=== PATIENT | male | born 1935 | race Caucasian/White ===

== ENCOUNTER 2018-02-04 00:31 | Emergency (ER) | payer MEDICARE, OTHER ==
--- NOTE | 2018-02-04 01:04 | Emergency Department Record ---
History of Present Illness - General Chief complaint: Lower Extremity Pain Stated complaint: LEFT LEG PAIN Time Seen by Provider: 02/04/18 00:49 Source: Patient Mode of Arrival: Ambulatory Limitations: No limitations - History of Present Illness Initial comments: pt had a vigorous ride in his golf cart with a lot of bouncing 2 days ago. since then he has had increased pain in the buttock w radiation down his l leg. he denies numbness or bowel or bladder issues. he has had back problems in the past. he has an appt with his dr this am but he could not sleep MD Complaint: Extremity pain, Other Onset/Timin -: Days(s) Location: Left, Other Severity scale (1-10): 10 Quality: Aching Consistency: Getting worse Improves with: Nothing Worsens with: Nothing Associated Symptoms: Denies other symptoms - Related Data Home Medications Medication Instructions Recorded Confirmed Last Taken Aspirin 81 mg PO DAILY 02/04/18 02/04/18 Unknown Bicalutamide 50 mg PO DAILY 02/04/18 02/04/18 Unknown Carvedilol 6.25 mg PO BID 02/04/18 02/04/18 Unknown Ramipril 5 mg PO DAILY 02/04/18 02/04/18 Unknown Rosuvastatin Calcium [Crestor] 5 mg PO DAILY 02/04/18 02/04/18 Unknown Allergies Allergy/AdvReac Type Severity Reaction Status Date / Time Sulfa (Sulfonamide Allergy rash Unverified 08/09/17 12:25 Antibiotics) Travel Screening - Travel/Exposure Within Last 30 Days Have you traveled within the last 30 days?: No Review of Systems Reviewed: No additional complaints except as noted below Constitutional: Reports: As per HPI. Denies: Chills, Fever, Malaise, Night sweats, Weakness, Weight change Eyes: Reports: As per HPI. Denies: Eye discharge, Eye pain, Photophobia, Vision change ENT: Reports: As per HPI. Denies: Congestion, Dental pain, Ear pain, Epistaxis , Hearing loss, Throat pain Respiratory: Reports: As per HPI. Denies: Cough, Dyspnea, Hemoptysis, Stridor, Wheezes Cardiovascular: Reports: As per HPI. Denies: Arrhythmia, Chest pain, Dyspnea on exertion, Edema, Murmurs, Orthopnea, Palpitations, Paroxysmal nocturnal dyspnea, Rheumatic Fever, Syncope Endocrine: Reports: As per HPI. Denies: Fatigue, Heat or cold intolerance, Polydipsia, Polyuria Gastrointestinal: Reports: As per HPI. Denies: Abdominal pain, Constipation, Diarrhea, Hematemesis, Hematochezia, Melena, Nausea, Vomiting Genitourinary: Reports: As per HPI. Denies: Dysuria, Frequency, Hematuria, Incontinence, Retention, Testicular pain, Testicular mass, Urgency Musculoskeletal: Reports: As per HPI. Denies: Arthralgia, Back pain, Gout, Joint swelling, Myalgia, Neck pain Skin: Reports: As per HPI. Denies: Bruising, Change in color, Change in hair/ nails, Lesions, Pruritus, Rash Neurological: Reports: As per HPI. Denies: Abnormal gait, Confusion, Headache, Numbness, Paresthesias, Seizure, Tingling, Tremors, Vertigo, Weakness Psychiatric: Reports: As per HPI. Denies: Anxiety, Auditory hallucinations, Depression, Homicidal thoughts, Suicidal thoughts, Visual hallucinations Hematological/Lymphatic: Reports: As per HPI. Denies: Anemia, Blood Clots, Easy bleeding, Easy bruising, Swollen glands Past Medical History - SOCIAL HISTORY Smoking Status: Never smoker Alcohol Use: None Drug Use: None - RESPIRATORY Hx Respiratory Disorders: Yes Hx of CPAP: Yes - CARDIOVASCULAR Hx Cardio Disorders: Yes Hx Hypertension: Yes - NEURO Hx Neuro Disorders: No - GI Hx GI Disorders: No - Hx Genitourinary Disorders: No - ENDOCRINE Hx Endocrine Disorders: No - MUSCULOSKELETAL Hx Musculoskeletal Disorders: No - PSYCH Hx Psych Problems: No - HEMATOLOGY/ONCOLOGY Hx Hematology/Oncology Disorders: No Family Medical History Any Significant Family History?: No Physical Exam - General General Appearance: Alert, Oriented x3, Cooperative, Mild distress - Head Head exam: Normal inspection - Eye Eye exam: Normal appearance, PERRL, EOMI Pupils: Normal accommodation - ENT ENT exam: Normal exam, Mucous membranes moist, Normal external ear exam, Normal orophraynx Ear exam: Normal external inspection. negative: External canal tenderness Nasal Exam: Normal inspection. negative: Discharge, Sinus tenderness Mouth exam: Normal external inspection, Tongue normal Teeth exam: Normal inspection. negative: Dental caries Throat exam: Normal inspection. negative: Tonsillar erythema, Tonsillar exudate - Neck Neck exam: Normal inspection, Full ROM. negative: Tenderness - Respiratory Respiratory exam: Normal lung sounds bilaterally. negative: Respiratory distress - Cardiovascular Cardiovascular Exam: Regular rate, Normal rhythm, Normal heart sounds - GI/Abdominal GI/Abdominal exam: Soft, Normal bowel sounds. negative: Tenderness - Rectal Rectal exam: Deferred - exam: Deferred - Extremities Extremities exam: Normal inspection, Full ROM, Normal capillary refill. negative: Tenderness - Back Back exam: Reports: Muscle spasm, Tenderness. Denies: Full ROM, Rash noted - Neurological Neurological exam: Alert, CN II-XII intact, Normal gait, Oriented X3 - Psychiatric Psychiatric exam: Normal affect, Normal mood - Skin Skin exam: Dry, Intact, Normal color, Warm Course Vital Signs 02/04/18 00:36 Temperature 98.5 F Pulse Rate 61 Respiratory 20 Rate Blood Pressure 183/93 Pulse Ox 96 Disposition Disposition: Discharge Clinical Impression: Sciatica Qualifiers: Laterality: left Qualified Code(s): M54.32 - Sciatica, left side Disposition: Home, Self-Care Condition: (1) Good Instructions: Sciatica (ED), Lumbar Radiculopathy (ED) Additional Instructions: follow up with family doctor today. return sooner if worse. moist heat, Forms: Patient Portal Access Quality - Quality Measures Quality Measures: N/A - Blood Pressure Screening Does Patient Have Any of the Following: No Blood Pressure Classification: Hypertensive Reading Systolic Measurement: 183 Diastolic Measurement: 93 Screening for High Blood Pressure: < First Hypertensive BP, F/U Documented > [ G8950] First Hypertensive Follow-up Interventions: Follow-up with rescreen GT 1 day and LT 4 weeks.
[2018-02-04] MEDS ORDERED: HYDROCODONE/APAP 5/325MG TABLET PO ONE (02:22)
--- NOTE | 2018-02-05 13:42 | RADIOLOGY REPORT ---
DATE: 02/05/2018. EXAM: LUMBAR SPINE. HISTORY: Back pain. TECHNIQUE: Frontal and lateral views of the lumbar spine. COMPARISON: None. FINDINGS: Osteopenia. There are five [id number] lumbar-type vertebral bodies. Vertebral body height is preserved. Minor anterolisthesis of L5 with respect to S1 with pars defect suggested at this level. Endplate degenerative change and facet arthropathy throughout the lumbar spine, greatest at the L4-5 and L5-S1 levels. 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 SUPERIMPOSED DIFFUSE DEGENERATIVE CHANGE. OSTEOPENIA. JOB NUMBER: [id number] MTDD
--- NOTE | 2018-02-05 13:45 | RADIOLOGY REPORT ---
DATE: 02/04/2018. EXAM: AP VIEW OF THE PELVIS. HISTORY: Pain. TECHNIQUE: AP view of the pelvis. COMPARISON: None. FINDINGS: Osteopenia. Negative for acute fracture or dislocation. Mild degenerative change of the hips bilaterally. Soft tissues are unremarkable. IMPRESSION: OSTEOPENIA WITH MILD DEGENERATIVE CHANGE. JOB NUMBER: [id number] MTDD
== END 2018-02-04 02:36 | disposition home or self-care (01) ==
LOC: ER 00:31
DX: M54.32 Sciatica, left side (principal)
CPT/HCPCS: 72100; 72170; 99283

== ENCOUNTER 2019-07-29 19:11 | Emergency (ER) | payer MEDICARE, OTHER ==
--- NOTE | 2019-07-29 19:26 | Emergency Department Record ---
History of Present Illness - General Chief complaint: Male Urogenital Problem Stated complaint: RED SWOLLEN PENIS Time Seen by Provider: 07/29/19 19:21 Source: Patient Mode of Arrival: Ambulatory Limitations: No limitations - History of Present Illness Initial comments: 84 yo male presents to ED for evaluation of irritation and redness to the glans of the penis that he noticed this morning. Patient is concerned about a possible bladder infection, denies difficulty urinating or retracting the foreskin on examination. Patient denies fevers, chills, flank pain, nausea, or vomiting symptoms. MD Complaint: Other Onset/Timin -: Days(s) Radiation: None Consistency: Constant Worsens with: None Reports: Denies other symptoms - Related Data Sexually active: No Home Medications Medication Instructions Recorded Confirmed Last Taken Meloxicam 15 mg PO ASDIR PRN 07/29/19 07/29/19 Unknown Previous Rx's Medication Instructions Recorded Clotrimazole/Betamethasone Dip 45 gm TP BID #1 cream..g. 07/29/19 [Clotrimazole-Betamethasone Crm] Allergies Allergy/AdvReac Type Severity Reaction Status Date / Time Sulfa (Sulfonamide Allergy rash Unverified 08/09/17 12:25 Antibiotics) Review of Systems Constitutional: Denies: Chills, Fever, Malaise, Night sweats Eyes: Denies: Eye discharge, Eye pain ENT: Denies: Congestion, Ear pain, Epistaxis Respiratory: Denies: Cough, Dyspnea Cardiovascular: Denies: Chest pain, Dyspnea on exertion Endocrine: Denies: Fatigue, Heat or cold intolerance Gastrointestinal: Denies: Abdominal pain, Nausea, Vomiting Genitourinary: Reports: Dysuria, Other (Irritation to the glans penis). Denies: Incontinence, Retention Musculoskeletal: Denies: Arthralgia, Back pain Skin: Denies: Bruising, Change in color Neurological: Denies: Abnormal gait, Confusion, Headache, Seizure Psychiatric: Denies: Anxiety Hematological/Lymphatic: Denies: Anemia, Blood Clots Past Medical History - SOCIAL HISTORY Smoking Status: Never smoker Drug Use: None - RESPIRATORY Hx Respiratory Disorders: Yes Hx of CPAP: Yes - CARDIOVASCULAR Hx Cardio Disorders: Yes Hx Hypertension: Yes - NEURO Hx Neuro Disorders: No - GI Hx GI Disorders: No - Hx Genitourinary Disorders: No - ENDOCRINE Hx Endocrine Disorders: No - MUSCULOSKELETAL Hx Musculoskeletal Disorders: No - PSYCH Hx Psych Problems: No - HEMATOLOGY/ONCOLOGY Hx Hematology/Oncology Disorders: No Physical Exam - General General Appearance: Alert, Oriented x3, Cooperative, No acute distress Limitations: No limitations - Head Head exam: Atraumatic, Normocephalic, Normal inspection Head exam detail: negative: Abrasion, Contusion, Craig's sign, General tenderness, Hematoma, Laceration - Eye Eye exam: Normal appearance. negative: Conjunctival injection, Periorbital swelling, Periorbital tenderness, Scleral icterus - ENT Ear exam: negative: Auricular hematoma, Auricular trauma Nasal Exam: negative: Active bleeding, Discharge, Dried blood, Foreign body Mouth exam: negative: Drooling, Laceration, Muffled voice, Tongue elevation - Neck Neck exam: Normal inspection. negative: Meningismus, Tenderness - Respiratory Respiratory exam: Normal lung sounds bilaterally. negative: Rales, Respiratory distress, Rhonchi, Stridor - Cardiovascular Cardiovascular Exam: Regular rate, Normal rhythm, Normal heart sounds - GI/Abdominal GI/Abdominal exam: Soft. negative: Rebound, Rigid, Tenderness - Rectal Rectal exam: Deferred - exam: Other (Mild erythema, small amount whitish discharge present to the glans with retraction of the foreskin c/we yeat dermatitis.). negative: Circumcision, Testicular tenderness, Urethral discharge - Extremities Extremities exam: Normal inspection. negative: Pedal edema, Tenderness - Back Back exam: Denies: CVA tenderness (R), CVA tenderness (L) - Neurological Neurological exam: Alert, Normal gait, Oriented X3 - Psychiatric Psychiatric exam: Normal affect, Normal mood - Skin Skin exam: Normal color. negative: Abrasion Type of lesion: negative: abrasion Course - Reevaluation(s) Reevaluation #1: 07/29/19 20:00 Urinalysis was reviewed and appears negative for infection. Examination appears c/w yeast dermatitis of the glans penis. Patient appears stable for discharge at this time. Disposition Disposition: Discharge Clinical Impression: Yeast dermatitis of penis Disposition: Home, Self-Care Condition: (2) Stable Instructions: Skin Yeast Infection (ED) Additional Instructions: Return to ED if your symptoms worsen or if you have any concerns. Clotrimazole cream as directed. Follow-up with your family doctor in 3-5 days as directed. Prescriptions: Clotrimazole/Betamethasone Dip [Clotrimazole-Betamethasone Crm] 45 gm TP BID #1 cream..g. Forms: Patient Portal Access Time of Disposition: 19:26 Quality - Quality Measures Quality Measures: N/A - Blood Pressure Screening Does Patient Have Any of the Following: Active Dx of HTN Blood Pressure Classification: Hypertensive Reading Systolic Measurement: 189 Diastolic Measurement: 102 Screening for High Blood Pressure: Patient Exclusion, Hx of HTN [G9744]
[2019-07-29 19:50] LABS: URINE APPEARANCE CLEAR; URINE BILIRUBIN NEGATIVE (NEGATIVE); URINE BLOOD SMALL (NEGATIVE); URINE COLOR YELLOW; URINE KETONE NEGATIVE (NEGATIVE); URINE LEUKOCYTE ESTERASE SMALL (NEGATIVE); URINE NITRITE NEGATIVE (NEGATIVE); URINE PROTEIN NEGATIVE (NEGATIVE); URINE UROBILINOGEN 0.2 E.U./dL (0.20 - 1.00)
[2019-07-29 19:57] LABS: URINE BACTERIA FEW; URINE EPITHELIAL CELLS 0 - 2 (FEW)
== END 2019-07-29 20:20 | disposition home or self-care (01) ==
LOC: ER 19:11
DX: B37.49 Other urogenital candidiasis (principal); I10 Essential (primary) hypertension
CPT/HCPCS: 81001; 99283

== ENCOUNTER 2019-10-13 03:18 | Emergency (ER) | payer MEDICARE, OTHER ==
--- NOTE | 2019-10-13 03:37 | Emergency Department Record ---
History of Present Illness - General Chief complaint: Flank Pain Stated complaint: LEFT SIDE PAIN Time Seen by Provider: 10/13/19 03:35 Source: Patient Mode of Arrival: Ambulatory Limitations: No limitations - History of Present Illness Initial comments: The patient is here due to L flank pain for the last hour or so. He was lying in bed sleeping when the pain started. It was a sharp stabbing pain only in the L flank without radiation and is not worse with movement or bending. There is no AP, nausea, vomiting, fever or diarrhea. The patient did take an Alleve which did relieve the pain significantly. The pain is only mild at this time. The patient denies any recent illnesses or injuries and has no hx of similar issues. MD Complaint: Other Onset/Timin -: Hour(s) Location: Left flank Radiation: None Severity scale (1-10): 8 Quality: Dull Consistency: Constant Improves with: None Worsens with: None Reports: Denies other symptoms - Related Data Sexually active: No Previous Rx's Medication Instructions Recorded Hydrocodone/Acetaminophen [[place] 1 each PO QID #10 tablet 10/13/19 5-325 Tablet] Tamsulosin HCl [Flomax] 0.4 mg PO DAILY #7 cap.er.24h 10/13/19 Allergies Allergy/AdvReac Type Severity Reaction Status Date / Time Sulfa (Sulfonamide Allergy PT UNSURE Verified 10/13/19 03:45 Antibiotics) OF REACTION Travel/Exposure Screening - Travel/Exposure Within Last 30 Days Have you traveled within the last 30 days?: No - Travel/Exposure Within Last Year Have you traveled outside the [place] in the last year?: No - Additonal Travel/Exposure Details Have you been exposed to anyone with a communicable illness?: No - Travel Symptoms Symptom Screening: None Review of Systems Constitutional: Denies: Chills, Fever Eyes: Denies: Eye discharge ENT: Denies: Congestion Respiratory: Denies: Cough Cardiovascular: Denies: Chest pain Endocrine: Denies: Fatigue Gastrointestinal: Denies: Abdominal pain, Nausea Genitourinary: Denies: Dysuria Musculoskeletal: Denies: Arthralgia Past Medical History - SOCIAL HISTORY Smoking Status: Never smoker Alcohol Use: None Drug Use: None - RESPIRATORY Hx Respiratory Disorders: Yes Hx of CPAP: Yes - CARDIOVASCULAR Hx Cardio Disorders: Yes Hx Hypertension: Yes - NEURO Hx Neuro Disorders: No - GI Hx GI Disorders: No - Hx Genitourinary Disorders: Yes Hx Prostate Problems: Yes - ENDOCRINE Hx Endocrine Disorders: No - MUSCULOSKELETAL Hx Musculoskeletal Disorders: No - PSYCH Hx Psych Problems: No - HEMATOLOGY/ONCOLOGY Hx Hematology/Oncology Disorders: No Hx Cancer: Yes (prostate- sx) Family Medical History Any Significant Family History?: No Physical Exam - General General Appearance: Alert, Oriented x3, Cooperative, No acute distress (The patient is lying on the bed in no distress or any obvious discomfort.) - Head Head exam: Atraumatic, Normocephalic - Eye Eye exam: Normal appearance, PERRL - Neck Neck exam: Normal inspection, Full ROM. negative: Tenderness - Respiratory Respiratory exam: Normal lung sounds bilaterally. negative: Respiratory distress - Cardiovascular Cardiovascular Exam: Regular rate, Normal rhythm, Normal heart sounds - GI/Abdominal GI/Abdominal exam: Soft, Normal bowel sounds. negative: Bruit, Guarding, Hernia, Organomegaly, Pulsatile mass, Rebound, Rigid, Tenderness - Extremities Extremities exam: Normal inspection, Full ROM, Normal capillary refill. negative: Tenderness - Back Back exam: Reports: Normal inspection. Denies: CVA tenderness (R), CVA tenderness (L), Muscle spasm, Paraspinal tenderness, Vertebral tenderness Image of Body Front/Back: 1 - Area of the pateint's discomfort. - Neurological Neurological exam: Alert, Normal gait. negative: Abnormal gait, Motor sensory deficit - Skin Skin exam: negative: Rash Course Vital Signs 10/13/19 03:24 Temperature 97.8 F Pulse Rate [ 52 L Left] Respiratory 20 Rate Blood Pressure 194/84 [Left] Pulse Ox 95 - Reevaluation(s) Reevaluation #1: The patient is doing a lot better at this time. His pain is much improved and is basically gone at this time. I did inform the patient about the blood in the urine. 10/13/19 04:32 Reevaluation #2: The patient is feeling much better at this time and is pain free. He has had no vomiting or fever and he does feel comfortable going home. I did discuss the CT report with the patient and at length. I did explain that the 3 mm L ureter stone should pass but it is up quite high in the ureter and will likely be painful. He is to not take any NSAIDS due to the mild renal insuffiency and is only to take Tylenol or [place] as directed. The patient is to call Dr. Hernandez today for an appointment [place]. He also is to see his PCP due to the other findings on the CT with the stomach, gallbladder and iliac arteries. The patient also was instructed to return to the ER for any worsening pain, fever, or vomiting. 10/13/19 04:52 Medical Decision Making - Data Complexity MDM Data: Labs Ordered and/or Reviewed, X-Ray Ordered and/or Reviewed (CT: 3 mm calculus L proximal ureter with mild hydro. Multiple other chronic findings.) - Lab Data Result diagrams: 10/13/19 03:40 10/13/19 03:40 Disposition Disposition: Discharge Clinical Impression: Ureteral stone with hydronephrosis Disposition: Home, Self-Care Condition: (2) Stable Instructions: Ureteral Stones (ED) Additional Instructions: Please drink plenty of fluids and only take Tylenol OR [place] for pain. Use the FLomax as directed until you pass the stone. Please call Dr. Mccallum for an appointment today. Also see your family doctor with the CT report in hand and do discuss further evaluation for the multiple incidental findings. Return to the ER for any worsening pain, fever, or vomiting. Prescriptions: Tamsulosin HCl [Flomax] 0.4 mg PO DAILY #7 cap.er.24h Hydrocodone/Acetaminophen [[place] 5-325 Tablet] 1 each PO QID #10 tablet Forms: Patient Portal Access Time of Disposition: 05:00 Quality - Quality Measures Quality Measures: N/A - Blood Pressure Screening View Details: Yes Does Patient Have Any of the Following: Active Dx of HTN Blood Pressure Classification: Hypertensive Reading Systolic Measurement: 167 Diastolic Measurement: 78 Screening for High Blood Pressure: Patient Exclusion, Hx of HTN [G9744]
[2019-10-13] MEDS ORDERED: ACETAMINOPHEN 1,000 MG/100 ML BTL IVPB ONE (03:42)
[2019-10-13 04:03] LABS: URINE BILIRUBIN NEGATIVE (NEGATIVE); URINE BLOOD LARGE (NEGATIVE); URINE KETONE TRACE (NEGATIVE); URINE LEUKOCYTE ESTERASE NEGATIVE (NEGATIVE); URINE NITRITE NEGATIVE (NEGATIVE); URINE PROTEIN NEGATIVE (NEGATIVE); URINE UROBILINOGEN 0.2 E.U./dL (0.20 - 1.00)
[2019-10-13 04:05] LABS: HEMATOCRIT 43.4 % (42.0-52.0); HEMOGLOBIN 14.2 gm/dl (14.0-18.0); MEAN CELL VOLUME 92.7 fl (81-97); MEAN CORPUSCULAR HEMOGLOBIN 30.3 pg (27-33); MEAN CORPUSCULAR HGB CONC 32.7 g/dl (32-36); MEAN PLATELET VOLUME 10.5 fl (7.4-10.4); PLATELET COUNT 155 K/uL (130-400); RED BLOOD COUNT 4.68 M/uL (4.40-5.70); RED CELL DISTRIBUTION WIDTH 13.6 % (11.5-14.5); WHITE BLOOD COUNT W/O DIFF 5.4 K/uL (4.2-12.2)
[2019-10-13 04:08] LABS: URINE APPEARANCE CLEAR; URINE COLOR YELLOW
[2019-10-13 04:19] LABS: CREATININE 1.4 mg/dL (0.7-1.2)
[2019-10-13 04:23] LABS: URINE RBC >50 (NONE SEEN)
[2019-10-13] MEDS ORDERED: 0.9 % SODIUM CHLORIDE 1,000 ML BAG IV ONE (04:25)
[2019-10-13 04:36] LABS: PLATELET ESTIMATE NORMAL (NORMAL); TEAR DROP CELLS 1+
--- NOTE | 2019-10-13 04:41 | CT SCAN REPORT ---
EXAMINATION: CT Abdomen and Pelvis without IV Contrast EXAM DATE: 10/13/2019 4:33 AM TECHNIQUE: Standard protocol CT imaging of the abdomen and pelvis was performed without intravenous c ontrast. INDICATION: L flank pain. COMPARISON: None ENCOUNTER: Not applicable CT ABDOMEN AND PELVIS FINDINGS: Lung Bases: Large sliding-type hiatal hernia/intrathoracic stomach Hepatobiliary: Indeterminate low-density lesions in the liver. There are gallstones present within th e gallbladder neck. No ductal dilatation Pancreas: The pancreas is normal. Spleen: The spleen is not enlarged. Adrenals: The adrenal glands are normal. Kidneys, Ureters, & Bladder: There is a 3 mm calculus in the left proximal ureter. Mild left hydronep hrosis. Urinary bladder appears normal. Gastrointestinal: Large sliding-type hiatal hernia. No evidence of bowel obstruction. Colonic diverti culosis without evidence of diverticulitis the appendix is visualized and appears normal. Reproductive Organs: Unremarkable Lymphatic System: There is no adenopathy within the abdomen or pelvis. Vasculature: Ectasia of the abdominal aorta. Aneurysm dilatation of the iliac arteries. Peritoneum: Nonspecific haziness of the small bowel mesentery Abdominal wall & Musculoskeletal: No suspicious bone lesions. Assessment of the solid organs, soft tissues, and vascular structures is overall limited on noncontra st imaging, IMPRESSION: Large sliding-type hiatal hernia/intrathoracic stomach 3 mm calculus in the left proximal ureter producing mild left hydronephrosis. Colonic diverticulosis without evidence diverticulitis. Gallstones present within the gallbladder neck. No ductal dilatation. 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 Dictated by: Raysa Jones DO on 10/13/2019 4:21 AM. .
== END 2019-10-13 05:16 | disposition home or self-care (01) ==
LOC: ER 03:18
DX: N13.2 Hydronephrosis with renal and ureteral calculous obstruction (principal); I10 Essential (primary) hypertension
CPT/HCPCS: 74176; 80048; 81001; 85027; 96374; 99284; J7030